=== PATIENT | male | born 1965 | race African-American/Black ===

== ENCOUNTER 2023-08-06 10:23 | Emergency (ER) | payer OTHER, MEDICAID ==
[~2023-08-06] VITALS: Ht 167.6 cm; Wt 79.0 kg
[2023-08-06 12:04] VITALS: BP 181/107; PULSE 71; RESP 18; TEMP 98.1; O2SAT 100
[2023-08-06] MEDS ORDERED: KETOROLAC TROMETH 30 MG/ML 1ML VIAL IM ONE (12:30)
[2023-08-06] MEDS ORDERED: CYCL-837 PO (13:26)
[2023-08-06] MEDS ORDERED: IBUP1TAB5 PO (13:26)
== END 2023-08-06 13:29 | disposition home or self-care (01) ==
LOC: ER 10:23
DX: S46.911A Strain of unspecified muscle, fascia and tendon at shoulder and upper arm level, right arm, initial encounter (principal); S39.012A Strain of muscle, fascia and tendon of lower back, initial encounter; W22.8XXA Striking against or struck by other objects, initial encounter; Y93.89 Activity, other specified; Y92.89 Other specified places as the place of occurrence of the external cause; Y99.8 Other external cause status
CPT/HCPCS: 72100; 73030; 96372; 99284; J1885